=== PATIENT | female | born 2000 | race Two or more races ===

== ENCOUNTER 2025-02-09 13:27 | Outpatient (AMB) | payer MEDICAID, SELFPAY ==
[2025-02-09 13:42] VITALS: BP 112/75; PULSE 83; RESP 16; TEMP 36.5; O2SAT 97; BMI 26.4
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
== END 2025-02-09 14:45 | disposition home or self-care (01) ==
LOC: HODSOBC 13:27
PROVIDERS: Supervising Provider Advanced Practice Midwife; Visit Provider Advanced Practice Midwife
DX: O09.92 Supervision of high risk pregnancy, unspecified, second trimester (principal); Z3A.16 16 weeks gestation of pregnancy
CPT/HCPCS: 81025; 99204; G0463

== ENCOUNTER 2025-03-09 13:10 | Outpatient (AMB) | payer MEDICAID, SELFPAY ==
[2025-03-09 13:41] VITALS: BP 110/70; PULSE 74; RESP 17; TEMP 36.3; O2SAT 98; BMI 27.6
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
== END 2025-03-09 14:03 | disposition home or self-care (01) ==
LOC: HODSOBC 13:10
PROVIDERS: Supervising Provider Advanced Practice Midwife; Visit Provider Advanced Practice Midwife
DX: O09.892 Supervision of other high risk pregnancies, second trimester (principal); O23.592 Infection of other part of genital tract in pregnancy, second trimester; N76.0 Acute vaginitis; Z3A.20 20 weeks gestation of pregnancy
CPT/HCPCS: 99213; G0463

== ENCOUNTER 2025-04-26 11:20 | Outpatient (AMB) | payer MEDICAID, SELFPAY ==
[2025-04-26 11:53] VITALS: BP 116/74; PULSE 85; RESP 16; TEMP 36.2; O2SAT 98; BMI 28.3
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
== END 2025-04-26 12:04 | disposition home or self-care (01) ==
LOC: HODSOBC 11:20
PROVIDERS: Supervising Provider Advanced Practice Midwife; Visit Provider Advanced Practice Midwife
DX: O09.892 Supervision of other high risk pregnancies, second trimester (principal); O26.842 Uterine size-date discrepancy, second trimester; Z3A.27 27 weeks gestation of pregnancy
CPT/HCPCS: 99213; G0463

== ENCOUNTER 2025-05-31 15:17 | Outpatient (AMB) | payer MEDICAID, SELFPAY ==
[2025-05-31 15:28] VITALS: BP 113/74; PULSE 82; RESP 18; TEMP 36.2; O2SAT 98; BMI 29.2
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
== END 2025-05-31 15:53 | disposition home or self-care (01) ==
LOC: HODSOBC 15:17
PROVIDERS: Supervising Provider Advanced Practice Midwife; Visit Provider Advanced Practice Midwife
DX: O09.93 Supervision of high risk pregnancy, unspecified, third trimester (principal); Z3A.32 32 weeks gestation of pregnancy
CPT/HCPCS: 99213; G0463

== ENCOUNTER 2025-06-18 15:36 | Outpatient (AMB) | payer MEDICAID, SELFPAY ==
[2025-06-18 15:54] VITALS: BP 126/74; PULSE 87; RESP 16; TEMP 36.5; O2SAT 98; BMI 29.9
--- NOTE | 2025-06-18 15:54 | OBCLNT_ITS ---
Vital Signs 06/18/25 15:54 Height 1.63 m Height Method Stated Weight 79.492 kg Weight Measurement Method Standing Scale BMI 29.9 BP 126/74 Blood Pressure Source Automatic Cuff Blood Pressure Location Left Upper Arm Position Sitting Respiration 16 Pulse 87 Pulse Source Monitor Temp 97.7 F Temp Source Oral Pulse Oximetry (%) 98 Oxygen Delivery Method Room Air Allergies/Home Meds Allergies & Medications Allergies No Known Allergies Allergy (Verified 06/18/25 15:58) Medication Reconciliation vitamin-ferrous fumarate 28 mg iron-folic acid 800 mcg tablet ( Vitamins with Minerals) 1 tab PO QDAY #60 tabs 02/09/25 [Rx Confirmed 06/18/25] Immunizations Immunizations Flu Vaccine in the Last 12 Months: No Flu Vaccine Exclusion Criteria: Refused by Patient Care OB Visit Log OB Flowsheet Initial Weight: Not Recorded Date -?-?-?-?-?-?-?-?-?-?-?-?- EGA Weight BP Alb Glu CTX Pres Fundal ht FHR Mov Dilation Station Effacement Hx Notes Visit Note 02/09/25 -?-?-?-?-?-?-?-?-?-?-?-?- 16w 1d 69.91 kg 112/75 absent unknown 16 145 active 24 yo for obi. IUP 16w. lmp 10/19/24. sure dates. denies sab complaints. + FM, no leaking or bleeding. order PNV. sched ule MFM sono with Dr Blake. OB panel NIPT,sma,cf and AFP today. discuss sab s/s. discuss diet and weight. rtc 4 week obc 03/09/25 -?-?-?-?-?-?-?-?-?-?-?-?- 20w 1d 73.085 kg 110/70 absent unknown 20 145 active Complaining of vaginal odor. No discharge no itching. Reports movement. Denies leaking, denies bleeding, denies contractions. Small amount of grayish discharge in vagina. And vagina is red and swollen Ne w swab plus today. Flagyl 500 twice daily x 7 days. Follow-up on MFM referral to Dr. Blake. Discussed labor precautions. Increase fluids. And return in 4 weeks for recheck 04/26/25 -?-?-?-?-?-?-?-?-?-?-?-?- 27w 0d 75.353 kg 116/74 absent unknown 27 145 active No OB complaints. Denies contractions, bleeding, leaking. Reports good movement. Patient does not have a follow-up with [facility] Third trimester labs. Schedule follow-up growth sono at 32 weeks. Discussed labor precautions. Increase fluids. Continue prenatals. Return in 3 weeks OB check 05/31/25 -?-?-?-?-?-?-?-?-?-?-?-?- 32w 0d 77.734 kg 113/74 absent unknown 32 145 active No OB complaints. Reports good movement. Denies leaking, bleeding, contractions Discussed third trimester labs. Ultrasound for growth pending. Discussed labor precautions. Kick count twice a day. Return in 3 weeks OB check 06/18/25 -?-?-?-?-?-?-?-?-?-?-?-?- 34w 4d 79.492 kg 126/74 absent cephalic 34 156 active Reports good movement. Denies labor complaints such as contractions, leaking, bleeding Follow-up on [facility] sono scheduled at [facility]. Discussed labor precautions and kick count twice a day. Return in 2 weeks for GBS [facility] Calculator Estimated Delivery Date Method Current WG Current Estimate 07/26/25 LMP (Certain) 34w 4d Other Estimates 07/26/25 Ultrasound #1 34w 4d 07/26/25 Manual 34w 4d final chi: 06/29 04/22, efw: 60th% Notes Visit Date: 05/31/25 Last Updated by: Stacia Valladares CNM 06/22: 3rd tri lab wnl Visit Date: 03/09/25 Last Updated by: Stacia Valladares CNM 25 yo . OB panel: O+,abs-, rpr;;nr, rub imm, hbsag-,hiv-,HC-, GC/CT-, a1: 5.1, NIPT-/female, carrier screen- Visit Date: 02/09/25 Last Updated by: Stacia Valladares CNM LMP 10/19/24. EDC 07/28/25 Office Procedures OB Clinic LOC & Office Proc's Nursing/Assessment Patient Status: Established Patient OB Clinic Nursing Assessment: Medication Reconciliation, Update PMH in EMR and Vital Signs OB Clinic Coordination of Care: Complex Care and Chronic Disease 1-5, Consent,records obtained, informed consent, Education Simp Pt/Fam, 1 Ins Authorization, Lab and Imaging orders, Results/Orders obtained and Staff clarify orders Special Needs: Heart tones Established Patient Charge Established Patient Point Assignment: 150 Established Patient Point Charge: EP Level 4 (120-155) Assessment & Plan Diagnosis / Problem List (1) Encounter for supervision of high risk in third trimester, antepartum: Status: Acute Plan Follow-up on growth sono at [facility]. Discussed labor precautions. Kick count twice a day. GBS next visit. Discussed danger signs symptoms and OB Additional Plan Follow Up: 2 Weeks (obc)
== END 2025-06-18 16:37 | disposition home or self-care (01) ==
LOC: HODSOBC 15:36
PROVIDERS: Supervising Provider Advanced Practice Midwife; Visit Provider Advanced Practice Midwife
DX: O09.93 Supervision of high risk pregnancy, unspecified, third trimester (principal); Z3A.34 34 weeks gestation of pregnancy; Z28.21 Immunization not carried out because of patient refusal
CPT/HCPCS: 99214; G0463

== ENCOUNTER 2025-07-08 14:08 | Outpatient (AMB) | payer MEDICAID, SELFPAY ==
[2025-07-08 14:18] VITALS: BP 123/79; PULSE 121; RESP 18; TEMP 36.2; O2SAT 98; BMI 30.6
--- NOTE | 2025-07-08 14:18 | OBCLNT_ITS ---
Vital Signs 07/08/25 14:18 Height 1.63 m Height Method Stated Weight 81.42 kg Weight Measurement Method Standing Scale BMI 30.6 BP 123/79 Blood Pressure Source Automatic Cuff Blood Pressure Location Left Upper Arm Position Sitting Respiration 18 Pulse 121 H Pulse Source Monitor Temp 97.2 F Temp Source Oral Pulse Oximetry (%) 98 Oxygen Delivery Method Room Air Allergies/Home Meds Allergies & Medications Allergies No Known Allergies Allergy (Verified 07/08/25 14:19) Medication Reconciliation vitamin-ferrous fumarate 28 mg iron-folic acid 800 mcg tablet ( Vitamins with Minerals) 1 tab PO QDAY #60 tabs 02/09/25 [Rx Confirmed 07/08/25] Immunizations Immunizations Flu Vaccine in the Last 12 Months: No Flu Vaccine Exclusion Criteria: No Exclusion Criteria Care OB Visit Log OB Flowsheet Initial Weight: Not Recorded Date -?-?-?-?-?-?-?-?-?-?-?-?- EGA Weight BP Alb Glu CTX Pres Fundal ht FHR Mov Dilation Station Effacement Hx Notes Visit Note 02/09/25 -?-?-?-?-?-?-?-?-?-?-?-?- 16w 1d 69.91 kg 112/75 absent unknown 16 145 active 24 yo for obi. IUP 16w. lmp 10/19/24. sure dates. denies sab complaints. + FM, no leaking or bleeding. order PNV. sched ule MFM sono with Dr Blake. OB panel NIPT,sma,cf and AFP today. discuss sab s/s. discuss diet and weight. rtc 4 week obc 03/09/25 -?-?-?-?-?-?-?-?-?-?-?-?- 20w 1d 73.085 kg 110/70 absent unknown 20 145 active Complaining of vaginal odor. No discharge no itching. Reports movement. Denies leaking, denies bleeding, denies contractions. Small amount of grayish discharge in vagina. And vagina is red and swollen Ne w swab plus today. Flagyl 500 twice daily x 7 days. Follow-up on MFM referral to Dr. Blake. Discussed labor precautions. Increase fluids. And return in 4 weeks for recheck 04/26/25 -?-?-?-?-?-?-?-?-?-?-?-?- 27w 0d 75.353 kg 116/74 absent unknown 27 145 active No OB complaints. Denies contractions, bleeding, leaking. Reports good movement. Patient does not have a follow-up with [facility] Third trimester labs. Schedule follow-up growth sono at 32 weeks. Discussed labor precautions. Increase fluids. Continue prenatals. Return in 3 weeks OB check 05/31/25 -?-?-?-?-?-?-?-?-?-?-?-?- 32w 0d 77.734 kg 113/74 absent unknown 32 145 active No OB complaints. Rep orts good movement. Denies leaking, bleeding, contractions Discussed third trimester labs. Ultrasound for growth pending. Discussed labor precautions. Kick count twice a day. Return in 3 weeks OB check 06/18/25 -?-?-?-?-?-?-?-?-?-?-?-?- 34w 4d 79.492 kg 126/74 absent cephalic 34 156 active Reports good movement. Denies labor complaints such as contractions, leaking, bleeding Follow-up on [facility] sono scheduled at [facility]. Discussed labor precautions and kick count twice a day. Return in 2 weeks for GBS 07/08/25 -?-?-?-?-?-?-?-?-?-?-?-?- 37w 3d 81.42 kg 123/79 absent cephalic 37 156 active 1 -2 60 Reports good movement. Increased pressure and contractions. No leaking or bleeding GBS today. Discussed labor precautions. Kick count twice a day. Increase fluids. Continue prenatals return in a week OB check [facility]I Calculator Estimated Delivery Date Method Current WG Current Estimate 07/26/25 LMP (Certain) 37w 3d Other Estimates 07/26/25 Ultrasound #1 37w 3d 07/29/25 Ultrasound #2 37w 0d 07/26/25 Manual 37w 3d final chi: 06/29 04/22, efw: 60th% Notes Visit Date: 05/31/25 Last Updated by: Stacia Valladares CNM 06/22: 3rd tri lab wnl Visit Date: 03/09/25 Last Updated by: Stacia Valladares CNM 25 yo . OB panel: O+,abs-, rpr;;nr, rub imm, hbsag-,hiv-,HC-, GC/CT-, a1: 5.1, NIPT-/female, carrier screen- Visit Date: 02/09/25 Last Updated by: Stacia Valladares CNM LMP 10/19/24. EDC 07/28/25 Office Procedures OBC Clinic LOC & Office Proc's Nursing/Assessment Patient Status: Established Patient OB Clinic Nursing Assessment: Medication Reconciliation, Update PMH in EMR and Vital Signs OB Clinic Coordination of Care: Consent,records obtained, informed consent, Education Simp Pt/Fam, Lab and Imaging orders and Results/Orders obtained Special Needs: Heart tones Established Patient Charge Established Patient Point Assignment: 100 Established Patient Point Charge: EP Level 3 (80-115) Assessment & Plan Diagnosis / Problem List (1) Encounter for supervision of high risk in third trimester, antepartum: Status: Acute Plan GBS today. Discussed labor precautions. Kick count twice a day. Increase fluids. Take prenatals. 10-week OB check Additional Plan Follow Up: 1 Week (obc)
== END 2025-07-08 14:32 | disposition home or self-care (01) ==
LOC: HODSOBC 14:08
PROVIDERS: Supervising Provider Advanced Practice Midwife; Visit Provider Advanced Practice Midwife
DX: O09.93 Supervision of high risk pregnancy, unspecified, third trimester (principal); Z3A.37 37 weeks gestation of pregnancy; Z36.85 Encounter for antenatal screening for Streptococcus B
CPT/HCPCS: 99213; G0463